=== PATIENT | female | born 1985 | race Caucasian/White ===

== ENCOUNTER → 2017-06-01 13:58 | Outpatient (CLI) | payer OTHER, SELFPAY ==
[2017-06-06 16:15] LABS: HPV Reflexed? NOT INDICATED
== END ==
PROVIDERS: Visit Provider Obstetrics & Gynecology
DX: Z12.4 Encounter for screening for malignant neoplasm of cervix (principal); Z12.72 Encounter for screening for malignant neoplasm of vagina
CPT/HCPCS: 88175; G0145

== ENCOUNTER → 2018-06-11 | Outpatient (CLI) | payer OTHER, SELFPAY ==
[2016-04-28 21:31] VITALS: BMI 33.9
[2018-06-13 11:25] LABS: HPV HC, High Risk Positive (Negative)
== END | disposition home or self-care (01) ==
LOC: LABSPEC 11:34
PROVIDERS: Visit Provider Obstetrics & Gynecology
DX: Z12.4 Encounter for screening for malignant neoplasm of cervix (principal)
CPT/HCPCS: 87624; 88175; G0145

== ENCOUNTER → 2019-10-18 | Outpatient (CLI) | payer OTHER, SELFPAY ==
[2016-04-28 21:31] VITALS: BMI 33.9
[2019-10-24 20:32] LABS: HPV APTIMA, High Risk Negative (Negative); HPV Reflexed? YES, CHARGE PATIENT
== END | disposition home or self-care (01) ==
LOC: LABSPEC 14:08
PROVIDERS: Referring Provider Obstetrics & Gynecology; Visit Provider Obstetrics & Gynecology
DX: Z12.4 Encounter for screening for malignant neoplasm of cervix (principal)
CPT/HCPCS: 87624; 88175; G0145

== ENCOUNTER → 2020-03-17 16:00 | Outpatient (CLI) | payer OTHER, SELFPAY ==
[2016-04-28 21:31] VITALS: BMI 33.9
[2020-03-22 14:53] LABS: 17-Hydroxyprogesterone 171 ng/dL (.)
[2020-03-23 10:51] LABS: Testosterone Free 1.4 pg/mL (0.0-4.2)
== END ==
PROVIDERS: Visit Provider Student in an Organized Health Care Education/Training Program
DX: E28.2 Polycystic ovarian syndrome (principal)
CPT/HCPCS: 36415; 82627; 83498; 84402; 82626

== ENCOUNTER → 2022-03-28 | Outpatient (CLI) | payer BC, SELFPAY ==
[2022-03-28 11:08] LABS: Hematocrit 43.5 % (37-47); Mean Corp Hgb Conc 34.5 g/dL (32-36); Mean Corpuscular Hgb 30.2 pg (27.0-32.0); Mean Corpuscular Volume 87.7 fL (81-99); Mean Platelet Vol. 11.3 fl (6.2-12.0); Platelet Count 181 K/mm3 (150-450); RBC Distribution Width CV 12.3 % (11.6-14.6); RBC Distribution Width SD 39.1 fl (35.1-43.9); Red Blood Count 4.96 M/mm3 (4.2-5.4); White Blood Count 6.4 K/mm3 (4.4-11.0)
[2022-03-28 11:28] LABS: Hemoglobin A1c 5.2 % (3.8-5.6)
[2022-03-28 11:48] LABS: Estradiol 26.7 pg/mL; Follicle Stimulating Hormone 4.9 mIU/mL; T4 Free Direct 1.22 ng/dL (0.76-1.46)
[2022-03-28 12:04] LABS: Hepatitis B Surface Antibody Non-Reactive; Progesterone Level 0.22 ng/mL (See Comment); Rubella IgG Reactive (Nonreactive)
[2022-03-29 11:27] LABS: V-Zoster IgG (Immunity) 564 index (Immune >165)
== END | disposition home or self-care (01) ==
LOC: WOBLAB 10:31
PROVIDERS: Visit Provider Student in an Organized Health Care Education/Training Program
DX: Z31.69 Encounter for other general counseling and advice on procreation (principal)
CPT/HCPCS: 36415; 82670; 83001; 83002; 83036; 84144; 84439; 84443; 85027; 86706; 86762; 86787